=== PATIENT | female | born 1995 | race African-American/Black ===

== ENCOUNTER 2022-04-09 10:53 | Emergency (ER) | payer OTHER, SELFPAY ==
[2022-04-09] VITALS (39 sets, daily range): BP systolic 106–136; BP diastolic 64–102; PULSE 75–105; RESP 9–29; TEMP 36.7; O2SAT 97–100
--- NOTE | ~2022-04-09 | XR_ITS ---
EXAMINATION: XR chest 1V portable INDICATION: Suicidal ideation TECHNIQUE: Portable AP chest at 1307 hours COMPARISON: None available FINDINGS: The lungs are free of acute opacities. No pleural effusion or pneumothorax. The cardiomedia stinal silhouette is normal. The visualized bones and soft tissues are unremarkable. IMPRESSION: 1. No acute cardiopulmonary abnormality. Reviewed, dictated and finalized at location A.
--- NOTE | 2022-04-09 10:55 | PC.NURSE ---
iv cath placed by ems removed
[2022-04-09 12:09] LABS: Basophils Percent Auto 0.2 % (0.2-1.2); Hematocrit 32.4 % (37.0-47.0); Hemoglobin 9.5 g/dL (12.0-15.0); Immature Granulocyte Percent A 0.6 % (0-0.5); Lymphocytes Absolute Auto 0.81 K/mm3 (0.9-3.2); Lymphocytes Percent Auto 4.6 % (18.3-44.2); Mean Corpuscular HGB Conc 29.3 g/dl (32-36); Mean Corpuscular Hemoglobin 22.3 pg (26-34); Mean Corpuscular Volume 76.1 fl (80-100); Mean Platelet Volume 12.1 fl (7.4-10.4); Monocytes Absolute Auto 0.9 K/mm3 (0.1-0.6); Monocytes Percent Auto 5.3 % (2.6-8.5); Neutrophils Absolute Auto 15.9 K/mm3 (1.3-6.7); Neutrophils Percent Auto 89.3 % (45.5-73.1); Platelet Count Result 287 k/mm3 (150-375); Red Blood Count 4.26 M/mm3 (4.2-5.4); Red Cell Distribution Width 18.3 % (11.5-14.5); White Blood Count 17.7 K/mm3 (4.5-10.0)
[2022-04-09 12:29] LABS: Alanine Aminotransferase 53 U/L (6-35); Albumin Level 5.2 g/dL (3.5-5.1); Alkaline Phosphatase 102 U/L (38-126); Anion Gap 19 mmol/L (8-16); Aspartate Amino Transferase 52 U/L (14-36); Bilirubin,Total 0.4 mg/dL (0.2-1.3); Blood Urea Nitrogen 13 mg/dL (7-17); Calcium 9.5 mg/dL (8.4-10.2); Carbon Dioxide 23 mmol/L (22-30); Chloride 99 mmol/L (98-107); Estimated CRCL calculation 97 ml/min; Estimated Glomerular Filt Rate > 60; Ethanol < 10 mg/dL (<10); Glucose 93 mg/dL (65-110); Potassium 4.5 mmol/L (3.4-5.0); Sodium 141 mmol/L (137-145)
--- NOTE | 2022-04-09 12:55 | ED.PSYCH ---
HPI - Psych General Chief Complaint: Psychiatric Symptoms <Neelam Melendez MD - Last Filed: 04/09/22 18:59> Stated Complaint: paranoia s/p smoking crack <Neelam Melendez MD - Last Filed: 04/09/22 18:59> Time Seen by Provider: 04/09/22 12:51 <Neelam Melendez MD - Last Filed: 04/09/22 18:59> Source: patient and EMS <Neelam Melendez MD - Last Filed: 04/09/22 18:59> Mode of arrival: EMS <Neelam Melendez MD - Last Filed: 04/09/22 18:59> Limitations: no limitations <Neelam Melendez MD - Last Filed: 04/09/22 18:59> History of Present Illness HPI Narrative: 21 years old -[place] female came to the emergency room [facility] taking different kind of drugs including crack, meth and fentanyl and others. Patient is homeless, she goes through stages of depression, she took quite a bit of drugs today to end her life, she is tired of everything, her life never get better or received the same is getting worse all the time and she is a weak woman cannot fight back. She feels that her heart is broken, she is on emotional roller coaster, she is disappointed at herself because she feels like cannot make it. Currently feeling that she have a broken heart <Neelam Melendez MD - Last Filed: 04/09/22 18:59> Related Data Allergies/Adverse Reactions: Allergies Allergy/AdvReac Type Severity Reaction Status Date / Time No Known Allergies Allergy Verified 04/09/22 11:04 <Neelam Melendez MD - Last Filed: 04/09/22 18:59> Review of Systems Review of Systems: All systems reviewed & are unremarkable except as noted in HPI and below <Neelam Melendez MD - Last Filed: 04/09/22 18:59> PMFSH Social History Social History: Social History Substance use type: crack/cocaine, amphetamines and opiates <Neelam Melendez MD - Last Filed: 04/09/22 18:59> Exam Narrative: General appearance: Well-developed, well-nourished, depressed Skin: Normal color Head: Normocephalic, nontraumatic Eyes: Clear conjunctiva ENT: Oropharynx normal, ears normal, nose normal Neck: Supple, nontender Chest and respiratory: Airway patent, no respiratory distress, no accessory muscle use Heart: Regular rate/rhythm Abdomen: Soft, nontender, no organomegaly, quiet bowel sounds Vascular: Normal peripheral pulses, normal capillary refill. Musculoskeletal: Normal range of motion, nontender back Neurologic: Alert and oriented ?3, CUSTOMER ASSISTANCE REPRESENTATIVE is normal as tested, no gross motor deficit <Neelam Melendez MD - Last Filed: 04/09/22 18:59> Psych: Mental Status: mental status grossly normal <Neelam Melendez MD - Last Filed: 04/09/22 18:59> Affect: Sad affect present (Depressed) <Neelam Melendez MD - Last Filed: 04/09/22 18:59> Attitude: cooperative <Neelam Melendez MD - Last Filed: 04/09/22 18:59> Course Course Emergency Course: 19:45 - Patient accepted by psychiatrist, Dr. Menchaca at [facility]. She is medically cleared for psychiatric admission. <James Barboza MD - Last Filed: 04/09/22 19:46> Vital Signs Vital signs: Vital Signs Temperature 98.0 F 04/09/22 11:01 Pulse Rate 80 04/09/22 11:01 Respiratory Rate 20 04/09/22 11:01 Blood Pressure 118/74 04/09/22 11:01 Pulse Oximetry 100 04/09/22 11:01 Oxygen Delivery Room Air 04/09/22 11:01 Temperature 98.0 F 04/09/22 11:01 Pulse Rate 99 04/09/22 17:30 Respiratory Rate 19 04/09/22 17:30 Blood Pressure 122/72 04/09/22 17:00 Pulse Oximetry 100 04/09/22 17:30 Oxygen Delivery Room Air 04/09/22 11:01 <Neelam Melendez MD - Last Filed: 04/09/22 18:59> Vital Signs Temperature 98.0 F 10
--- NOTE | 2022-04-09 12:56 | ECG_ITS ---
Measurements Intervals [place] Rate: 84 P: 47 GA: 116 QRS: 58 QRSD: 90 T: 39 QT: 382 QTc: 452 Interpretive Statements SINUS RHYTHM WITH SHORT GA INTERVAL NONSPECIFIC ST ABNORMALITY ABNORMAL ECG NO PREVIOUS ECG AVAILABLE FOR COMPARISON Electronically Signed On 04-09-2022 13:59:04 CDT by Jimy Day M.D.
[2022-04-09 13:08] LABS: Add Urine Microscopic? YES; Appearance Urine Cloudy (Clear); Bacteria Urine Trace /hpf; Bilirubin Urine Negative (Negative); Blood Urine Negative (Negative); Color Urine Yellow (Yellow); Glucose Urine UA Negative (Negative); Ketones Urine Trace mg/dL (Negative); Leukocyte Esterase Ur Negative LEU/UL (Negative); Mucus Urine Rare /lpf; Nitrate Urine Negative (Negative); Protein Urine 2+ mg/dL (Negative); RBC Urine 0-2 /hpf (0-2); Specific Grav Ur 1.024 (1.001-1.035); Squamous Epithelial Cell Urine Moderate /hpf (Few); Urobilinogen Urine Negative mg/dL (<2.0)
[2022-04-09 13:19] LABS: Amphetamine Screen Urine Negative (Negative); Barbiturate Screen Urine Negative (Negative); Benzodiazepines Screen Urine Negative (Negative); Cannabinoid Screen Urine Negative (Negative); Cocaine Screen Urine Positive (Negative); Methadone Screen Urine Negative (Negative); Opiate Screen Urine Negative (Negative); Phencyclidine Screen Urine Negative (Negative)
--- NOTE | 2022-04-09 13:46 | PC.NURSE ---
PT HAS BEEN MEDICALLY CLEARED PER DR. PARKS. WILL CONTACT [facility]
--- NOTE | 2022-04-09 13:55 | PC.NURSE ---
SPOKE W/ SAMY AT [facility]
[2022-04-09 14:32] LABS: SARS-CoV-2 RNA PCR Negative
--- NOTE | 2022-04-09 15:33 | PC.NURSE ---
[facility] HERE TO EVALUATE PT. PER CLARITZA FROM [facility] SHE HAS EVALUATED THIS PT BEFORE AND ADMITTED TO [facility] FOR [facility]. CLARITZA REPORTS TO ME THAT THIS PT IS NOT WHO SHE SAYS SHE IS AND IS OLDER THAN THE DATE SHE GAVE US. WHEN CONFRONTED ABOUT THIS THE PT ADMITS TO HER NAME BEING ROBEL CM AND HER BIRTHDAY BEING IN . MULTIPLE PARTIES ARE INVOLVED AT THIS TIME TO CORRECT THE CHART INFORMATION ON THIS PT. SERVICE DESK MANAGER HAS SPOKEN WITH REGISTRATION PERSONNEL WHO HAVE A PLAN IN PLACE TO CORRECT ISSUE. SERVICE DESK MANAGER ASSURES ME THAT LAB AND REGISTRATION INFORMATION WILL BE SWITCHED OVER TO CORRECT INFORMATION.
[2022-04-09] MEDS: SALINE 0.65% NAS SOLN 44 ML BTL 1 SPRAY NASAL (23:31)
== END 2022-04-09 23:39 ==
PROVIDERS: Emergency Medicine; Emergency Provider Preventive Medicine Aerospace Medicine; PCP Family Medicine
DX: F32.9 Major depressive disorder, single episode, unspecified (principal); Z20.822 Contact with and (suspected) exposure to COVID-19; F11.90 Opioid use, unspecified, uncomplicated
CPT/HCPCS: 36415; 71045; 80053; 80307; 81001; 81025; 84443; 85025; 93005; 99285; A9270; C9803; U0003; U0005

== ENCOUNTER 2023-06-02 09:35 | Emergency (ER) | payer OTHER, SELFPAY ==
--- NOTE | ~2023-06-02 | CT_ITS ---
EXAMINATION: CT abdomen pelvis w con INDICATION: Abdominal pain and vomiting TECHNIQUE: Computed tomographic images of the abdomen and pelvis were obtained after the administrati on of 100 cc of Omnipaque 350 intravenous contrast. The dose-length product (DLP) was 726.84 mGy-cm. Automated exposure control and iterative reconstruction technique were employed. COMPARISON: None available FINDINGS: Minimal dependent atelectasis is present in the lung bases. The heart size is normal. The l iver, spleen, pancreas, gallbladder, and adrenal glands are normal. The kidneys are unremarkable. No pathologically enlarged abdominal or pelvic lymph nodes are identified. No free intraperitoneal gas o r evidence of bowel obstruction. A moderate volume of colonic stool is present. The appendix is armando l. IMPRESSION: 1. No CT correlate for the patient's symptoms. Reviewed, dictated and finalized at location L. ICAL STOCK INSPECTOR
[2023-06-02 09:37] VITALS: BP 119/65; PULSE 74; RESP 18; TEMP 36.3; O2SAT 99
[2023-06-02 10:22] LABS: Basophils Percent Auto 0.4 % (0.2-1.2); Eosinophils Absolute Auto 0.1 K/mm3 (0-0.3); Eosinophils Percent Auto 2.7 % (0-4.4); Hematocrit 35.5 % (37.0-47.0); Hemoglobin 10.4 g/dL (12.0-15.0); Immature Granulocyte Absolute 0.01 K/mm3 (0.00-0.031); Immature Granulocyte Percent A 0.2 % (0-0.5); Immature Platelet Fraction Pct 9.3 % (0.9-11.2); Lymphocytes Absolute Auto 1.47 K/mm3 (0.9-3.2); Lymphocytes Percent Auto 30.6 % (18.3-44.2); Mean Corpuscular HGB Conc 29.3 g/dl (32-36); Mean Corpuscular Hemoglobin 23.9 pg (26-34); Mean Corpuscular Volume 81.4 fl (80-100); Mean Platelet Volume 11.9 fl (7.4-10.4); Monocytes Absolute Auto 0.5 K/mm3 (0.1-0.6); Monocytes Percent Auto 9.8 % (2.6-8.5); Neutrophils Absolute Auto 2.7 K/mm3 (1.3-6.7); Neutrophils Percent Auto 56.3 % (45.5-73.1); Platelet Count Result 215 k/mm3 (150-375); Red Blood Count 4.36 M/mm3 (4.2-5.4); Red Cell Distribution Width 18.2 % (11.5-14.5); White Blood Count 4.8 K/mm3 (4.5-10.0)
[2023-06-02 10:43] LABS: Alanine Aminotransferase 27 U/L (6-35); Alkaline Phosphatase 81 U/L (38-126); Anion Gap 7 mmol/L (8-16); Aspartate Amino Transferase 31 U/L (14-36); Bilirubin,Total 0.2 mg/dL (0.2-1.3); Blood Urea Nitrogen 8 mg/dL (7-17); Carbon Dioxide 26 mmol/L (22-30); Chloride 105 mmol/L (98-107); Estimated CRCL calculation 94 ml/min; Estimated Glomerular Filt Rate > 60; Glucose 97 mg/dL (65-110); Lipase 126 U/L (23-300); Potassium 4.5 mmol/L (3.4-5.0); Sodium 138 mmol/L (137-145)
[2023-06-02 11:54] LABS: Appearance Urine Clear (Clear); Bilirubin Urine Negative (Negative); Blood Urine Negative (Negative); Color Urine Yellow (Yellow); Glucose Urine UA Negative (Negative); Ketones Urine Negative (Negative); Leukocyte Esterase Ur Negative LEU/UL (Negative); Nitrate Urine Negative (Negative); Protein Urine Negative (Negative); Specific Grav Ur 1.019 (1.001-1.035); Urobilinogen Urine 0.2 mg/dL (<2.0); pH Urine 7.5 (5.0-9.0)
[2023-06-02 11:55] LABS: Add Urine Microscopic? NO
--- NOTE | 2023-06-02 12:18 | ED.ABDPAIN ---
HPI - Abdominal Pain General Chief Complaint: Abdominal Pain Stated Complaint: abd pain Time Seen by Provider: 06/02/23 11:42 Source: patient Mode of arrival: ambulatory Limitations: no limitations History of Present Illness HPI narrative: This is a 28-year-old female that presents to the emergency department with multiple complaints. Reports abdominal pain and nausea ongoing over the last 5 days. Also reports a boil that she has been on oral antibiotics for with little relief. Reports discoloration to her right great toenail. Denies fevers, vomiting, dysuria, or hematuria. Related Data Allergies Allergy/AdvReac Type Severity Reaction Status Date / Time No Known Allergies Allergy Verified 06/02/23 12:05 Review of Systems Review of Systems: CONSTITUTIONAL: Denies fever GASTROINTESTINAL: Reports abdominal pain, nausea. Denies vomiting, or diarrhea. GENITOURINARY: Denies dysuria or hematuria. All systems reviewed & are unremarkable except as noted in HPI and below PMFSH Past Medical History Medical History (Updated 06/02/23 @ 13:25 by Radha Tristan PA-C) History of bipolar disorder Social History Social History Substance use type: crack/cocaine, amphetamines and opiates Exam Narrative: GENERAL: Well-appearing, well-nourished, and in no acute distress. HEAD: Normocephalic, atraumatic. EYES: EOMI. CHEST: Clear to auscultation. No respiratory distress. No wheezes rales or rhonchi HEART: Regular rate and rhythm. No murmur heard. Normal peripheral pulses. ABDOMEN: Soft, nondistended, normal active bowel sounds. Tender to palpation in epigastrium, without guarding. No CVA tenderness EXTREMITIES: Normal range of motion. No edema. No erythema, edema or fluctuance in patient's area of concern in the right groin SKIN: Warm, dry, no rash. Right great toenail with dark discoloration and splitting NEURO: No focal deficits. Alert and oriented x3. PSYCH: Normal mood and affect Course Course Emergency Course: Patient updated on her workup. Resting comfortably. Requesting the Cheetos that are in her jacket pocket Vital Signs Vital signs: Vital Signs Temperature 97.3 F L 06/02/23 09:37 Pulse Rate 74 06/02/23 09:37 Respiratory Rate 18 06/02/23 09:37 Blood Pressure 119/65 06/02/23 09:37 Pulse Oximetry 99 06/02/23 09:37 Oxygen Delivery Room Air 06/02/23 09:37 Temperature 97.3 F L 06/02/23 09:37 Pulse Rate 74 06/02/23 09:37 Respiratory Rate 18 06/02/23 09:37 Blood Pressure 119/65 06/02/23 09:37 Pulse Oximetry 99 06/02/23 09:37 Oxygen Delivery Room Air 06/02/23 09:37 MDM - Abdominal Pain MDM Narrative Medical decision making narrative: patient presents to the emergency department with multiple complaints. Reporting epigastric abdominal discomfort and nausea. She is afebrile and nontoxic appearing. CBC with mild normocytic anemia hemoglobin of 10.4. Metabolic panel and lipase without concerning findings. UA without evidence of infection. test is negative. CT scan abdomen pelvis without acute findings. Patient resting comfortably. Updated on her workup. Able to tolerate p.o. challenge. She was additionally reporting changes to her right great toenail. Will be sent prescription for topical antifungal treatment. Also endorsing a boil that she was recently started on antibiotics for. She did not think this was improving. There is no evidence for abscess or infection on exam at this time. She was instructed to have continued follow-up with the provider that saw her for this and finish her antibiotic as prescribed. She was given warnings to return to the ER Differential Diagnosis Differential diagnosis: Likely gastroenteritis, pancreatitis and other (gastritis, esophagitis, GERD) Lab Data Attestation: I reviewed the patient's lab results. 06/02/23 10:15 06/02/23 10:15 Lab
[2023-06-02] MEDS: SODIUM CHLORIDE 0.9% IV 1,000 ML 999 ML IV CONT (12:34)
[2023-06-02] MEDS: ONDANSETRON INJ 4 MG/2 ML VIAL IV PUSH (12:34)
== END 2023-06-02 14:02 | disposition home or self-care (01) ==
PROVIDERS: Emergency Medicine; Emergency Provider Physician Assistant
DX: R10.13 Epigastric pain (principal); R11.0 Nausea; B35.3 Tinea pedis; F31.9 Bipolar disorder, unspecified
CPT/HCPCS: 36415; 74177; 80053; 81003; 81025; 83690; 85025; 85055; 96361; 96374; 99284; J2405; J7030; Q9967

== ENCOUNTER 2023-06-26 16:05 | Emergency (ER) | payer OTHER, SELFPAY ==
--- NOTE | 2023-06-26 16:10 | PC.NURSE ---
denies SI and HI and reports she wants to leave
== END 2023-06-26 16:10 | disposition left against medical advice (07) ==
DX: Z53.21 Procedure and treatment not carried out due to patient leaving prior to being seen by health care provider (principal)
CPT/HCPCS: 99199

== ENCOUNTER 2024-01-07 18:02 | Emergency (ER) | payer OTHER, SELFPAY ==
--- NOTE | ~2024-01-07 | XR_ITS ---
XR chest 1V portable Ordering provider: Neelam Melendez MD History: 28 years Female with . INTERMITTENT CONTRACTURES,HESISTENT SPEECH . Comparison: April 09, 2022 FINDINGS: MEDIASTINUM: The cardiac silhouette is not enlarged. LUNGS: No infiltrates, effusions or pneumothorax. OTHER: No free air under the diaphragm. IMPRESSION: No acute cardiopulmonary pathology. Reviewed, dictated and finalized at location A.
--- NOTE | ~2024-01-07 | CT_ITS ---
CT brain wo con Ordering provider: Neelam Melendez MD History: 28 years Female with . CONTRQCTURES,HESITENT SPEECH . Comparison: None. Technique: CT of the head without contrast. Radiation reduction technique utilized. DLP is 605.33 mGy-cm. FINDINGS: BRAIN PARENCHYMA AND CSF SPACES: No midline shift, mass effect or hemorrhage. The brain parenchyma a nd CSF spaces are otherwise normal. VISUALIZED PARANASAL SINUSES: Well aerated. MASTOIDS: Well aerated. BONES: The bones appear intact. SOFT TISSUES: Visualized nasopharynx is normal. Superficial soft tissues are normal. IMPRESSION: No acute intracranial findings. Reviewed, dictated and finalized at location A.
[2024-01-07 17:50] VITALS: BP 136/90; PULSE 66; RESP 16; TEMP 37.1; O2SAT 100
--- NOTE | 2024-01-07 18:08 | ECG_ITS ---
Test Date: 2024-01-07 18:26:36 Measurements Intervals [place] Rate: 59 P: 23 ME: 110 QRS: 70 QRSD: 93 T: 44 QT: 424 QTc: 423 Interpretive Statements SINUS BRADYCARDIA WITH SHORT ME INTERVAL BASELINE ARTIFACT- V2 BORDERLINE ECG No previous ECG available for comparison Electronically Signed On 01-07-2024 18:53:51 CDT by Gurjit Vail D.O.
[2024-01-07 18:22] LABS: Glucose Point of Care 81 mg/dl (65-105)
[2024-01-07 18:30] VITALS: BP 136/70; PULSE 62; RESP 14; O2SAT 100
[2024-01-07 18:39] LABS: Basophils Percent Auto 0.5 % (0.2-1.2); Eosinophils Absolute Auto 0.1 K/mm3 (0-0.3); Eosinophils Percent Auto 1.8 % (0-4.4); Hematocrit 40.5 % (37.0-47.0); Hemoglobin 12.8 g/dL (12.0-15.0); Immature Granulocyte Absolute 0.01 K/mm3 (0.00-0.031); Immature Granulocyte Percent A 0.2 % (0-0.5); Lymphocytes Absolute Auto 1.62 K/mm3 (0.9-3.2); Mean Corpuscular HGB Conc 31.6 g/dl (32-36); Mean Corpuscular Hemoglobin 28.6 pg (26-34); Mean Corpuscular Volume 90.4 fl (80-100); Mean Platelet Volume 12.4 fl (7.4-10.4); Monocytes Absolute Auto 0.7 K/mm3 (0.1-0.6); Monocytes Percent Auto 11.2 % (2.6-8.5); Neutrophils Absolute Auto 3.8 K/mm3 (1.3-6.7); Neutrophils Percent Auto 60.3 % (45.5-73.1); Platelet Count Result 215 k/mm3 (150-375); Red Blood Count 4.48 M/mm3 (4.2-5.4); Red Cell Distribution Width 15.6 % (11.5-14.5); White Blood Count 6.2 K/mm3 (4.5-10.0)
[2024-01-07 18:50] LABS: INR 0.9; Prothrombin Time 12.3 Seconds (11.1-14.7)
[2024-01-07 18:51] LABS: Partial Thromboplastin Time 26.3 Seconds (22.3-36.8)
[2024-01-07 18:54] LABS: Alanine Aminotransferase 18 U/L (6-35); Albumin Level 4.4 g/dL (3.5-5.1); Alkaline Phosphatase 74 U/L (38-126); Anion Gap 9 mmol/L (4-12); Aspartate Amino Transferase 23 U/L (14-36); Bilirubin,Total 0.2 mg/dL (0.2-1.3); Blood Urea Nitrogen 8 mg/dL (7-17); Carbon Dioxide 27 mmol/L (22-30); Chloride 103 mmol/L (98-107); Estimated CRCL calculation 106 ml/min; Estimated Glomerular Filt Rate > 60; Glucose 44 mg/dL (65-110); Potassium 3.7 mmol/L (3.4-5.0); Sodium 139 mmol/L (137-145)
--- NOTE | 2024-01-07 18:54 | PC.NURSE ---
Received call from lab of glucose 44. Dr Bee aware and is ok with juice to be given d/t pt alert and able to drink. Primary RN Cat bringing pt juice.
[2024-01-07 19:01] LABS: Troponin I < 0.012 ng/mL (0.000-0.034)
[2024-01-07 19:35] LABS: Glucose Point of Care 91 mg/dl (65-105)
--- NOTE | 2024-01-07 19:42 | ED.GENADULT ---
HPI - General Adult General Chief complaint: Neuro Symptoms/Deficit Stated complaint: EXT CONTRACTED, CANT TALK Time Seen by Provider: 01/07/24 19:19 History of Present Illness HPI narrative: Patient is a 28-year-old female who presents emergency department with chief complaint of contracted hands and slurred speech. The patient is currently a resident at [facility] not undergoing treatment the patient has no history of diabetes reports that she was getting Rady eat in her hands cramped up and she had some difficulty talking EMS was called the patient was transported to the emergency department patient had a fingerstick blood sugar in the 80s at the time of arrival the patient states she started to feel little better Related Data Home Medications Medication Instructions Recorded Confirmed valacyclovir 1 gram tablet mg 01/07/24 ziprasidone HCl 20 mg capsule mg PO 01/07/24 Allergies Allergy/AdvReac Type Severity Reaction Status Date / Time No Known Allergies Allergy Verified 06/02/23 12:05 Review of Systems Review of Systems: A 10 system review of systems was completed on the patient and is negative except for what is stated in the HPI. Nursing and ancillary documentation was reviewed. [facility] Past Medical History Medical History History of bipolar disorder Social History Social History Substance use type: crack/cocaine, amphetamines and opiates Exam Narrative: GENERAL: Well-appearing, well-nourished, and in no acute distress. HEAD: Normocephalic, atraumatic. EYES: PERRLA and EOMI. ENT: Nares clear, no rhinorrhea or epistaxis. Mucous membranes moist. NECK: Supple. CHEST: Clear to auscultation. No respiratory distress. HEART: Regular rate and rhythm. No murmur heard. Normal peripheral pulses. ABDOMEN: Soft, nontender, nondistended, normal active bowel sounds. EXTREMITIES: Normal range of motion. No edema. SKIN: Warm, dry, no rash. NEURO: No focal deficits. Alert and oriented x3. NIH 0 PSYCH: Normal mood and affect. Course Vital Signs Vital signs: Vital Signs Temperature 37.1 C 01/07/24 17:50 Pulse Rate 66 01/07/24 17:50 Respiratory Rate 16 01/07/24 17:50 Blood Pressure 136/90 07/18/24 17:50 Pulse Oximetry 100 01/07/24 17:50 Oxygen Delivery Room Air 01/07/24 17:50 Temperature 37.1 C 01/07/24 17:50 Pulse Rate 62 01/07/24 18:30 Respiratory Rate 14 01/07/24 18:30 Blood Pressure 136/70 01/07/24 18:30 Pulse Oximetry 100 01/07/24 18:30 Oxygen Delivery Room Air 01/07/24 17:50 Medical Decision Making MDM Narrative Medical decision making narrative: differential diagnosis includes hypoglycemia, CVA, electrolyte abnormality, medication reaction laboratory studies were obtained on the patient showed normal CBC CMP showed a glucose of 44 the patient was given oral or issues and now feels better reports that her symptoms have resolved troponin was negative chest x-ray showed no acute infiltrate IMPRESSION: No acute intracranial findings. patient has been observed in the emergency department and has blood sugars in the 90's Vital Signs Vital Signs: Vital Signs Temperature 37.1 C 01/07/24 17:50 Pulse Rate 66 01/07/24 17:50 Respiratory Rate 16 01/07/24 17:50 Blood Pressure 136/90 01/07/24 17:50 Pulse Oximetry 100 01/07/24 17:50 Oxygen Delivery Room Air 01/07/24 17:50 Temperature 37.1 C 01/07/24 17:50 Pulse Rate 62 01/07/24 18:30 Respiratory Rate 14 01/07/24 18:30 Blood Pressure 136/70 01/07/24 18:30 Pulse Oximetry 100 01/07/24 18:30 Oxygen Delivery Room Air 01/07/24 17:50 Lab Data 01/07/24 18:30 01/07/24 18:30 Labs: Lab Results 01/07/24 01/07/24 01/07/24 Range/Units 18:19 18:30 19:32 WBC 6.2 (4.5-10.0) K/mm3 RBC
[2024-01-07 20:05] VITALS: BP 136/70; PULSE 65; RESP 15; O2SAT 98
== END 2024-01-07 20:09 | disposition home or self-care (01) ==
PROVIDERS: Emergency Medicine; Emergency Provider Emergency Medicine
DX: E16.2 Hypoglycemia, unspecified (principal); F31.9 Bipolar disorder, unspecified; Z79.899 Other long term (current) drug therapy; R00.1 Bradycardia, unspecified
CPT/HCPCS: 36415; 70450; 71045; 80053; 81025; 82948; 84484; 85025; 85610; 85730; 93005; 99284